=== PATIENT | female | born 2000 | race Caucasian/White ===

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

== ENCOUNTER 2022-06-02 10:01 | Day surgery (SDC) | payer MEDICAID ==
[~2022-06-02 10:01] MED LIST changes: -BUPIVACAINE 0.5% VIAL IJ ONE; -Lactated Ringers 1,000 ML IV ONE; +Marcaine Mpf 0.5% Vial 30 Ml ONE; +XYLOCAINE 1% HCL 20 ML MDV ONE
[2022-06-02] MEDS ORDERED: Lactated Ringers 1,000 ML IV ONE ×2 (10:14→15:32)
[2022-06-02] MEDS ORDERED: CEFAZOLIN 2 GM-D5W BAG** 2 GM/50 ML ML IV ONE (10:14)
[2022-06-02] MEDS ORDERED: CEFAZOLIN 2 GM-D5W BAG** 2 GM/50 ML ML IV SCH (10:30)
[2022-06-02] MEDS ORDERED: Lactated Ringers 1,000 ML IV SCH (10:30)
[2022-06-02] MEDS ORDERED: SUBLIMAZE 100 MCG/2 ML ONE ×3 (11:32→16:02)
[2022-06-02] MEDS ORDERED: Xylocaine-Mpf 2% 5 Ml Vial ONE ×2 (11:32→15:06)
[2022-06-02] MEDS ORDERED: Zofran 4 MG/2 ML VIAL ONE (11:32)
[2022-06-02] MEDS ORDERED: Decadron 4 MG INJ ONE ×3 (11:32→15:06)
[2022-06-02] MEDS ORDERED: DIPRIVAN 200 MG/20 ML IV ONE (11:32)
[2022-06-02] MEDS ORDERED: Quelicin Fliptop 200 MG/10 ML ONE (11:32)
[2022-06-02] MEDS ORDERED: Epinephrine Preservative Free 1 MG/ML ONE ×2 (14:29→14:46)
[2022-06-02] MEDS ORDERED: TORAdol 30 mg Injection ONE (14:32)
[2022-06-02] MEDS ORDERED: DEXMEDETOMIDINE 80 MCG/20ML-NS IV ONE (15:00)
[2022-06-02] MEDS ORDERED: Marcaine 0.5%/Epinephrine 10 ML ONE (15:06)
[2022-06-02] MEDS ORDERED: Compazine 10 MG/2 ML ONE (15:54)
[2022-06-02] MEDS ORDERED: Hydromorphone 1 mg/ml Injection ONE (16:02)
[2022-06-02 17:25] VITALS: BP 101/75; PULSE 97; O2SAT 95
--- NOTE | 2022-06-05 08:44 | OP ---
SURGERY DATE: 06/02/2022 0057 PREOPERATIVE DIAGNOSES: 1) Osteochondral lesion at the medial tibial plafond. 2) Right ankle pain. 3) Fusion of right ankle. 4) Synovitis right ankle. POSTOPERATIVE DIAGNOSES: 1) Osteochondral lesion at the medial tibial plafond. 2) Right ankle pain. 3) Fusion of right ankle. 4) Synovitis right ankle. PROCEDURES: 1) Ankle arthroscopy with synovectomy. 2) Osteochondral drilling. SURGEON: Trae Peters DPM. ENVIRONMENTAL ASSISTANT: None. ANESTHESIA: General plus a postoperative popliteal and saphenous block. HEMOSTASIS: Pressure dressing. ESTIMATED BLOOD LOSS: Less than 2 cc. MATERIALS: None. INJECTABLES: See anesthesia report for details. INDICATION FOR SURGERY: Barb is a very pleasant 21-year-old female who is very well known to my service in the past. We addressed pain to this ankle with an os trigonum to the posterior aspect of the ankle. The patient's pain was for a long time eliminated. However, she has returned with some residual pain. However this is to the front of the ankle at this time. The patient failed conservative therapy and a MRI was obtained back in March demonstrating a small focus osteochondral lesion at the medial aspect of the tibial plafond with subchondral bone marrow edema that measured 7 x 10 mm in the transverse AP plane. Because of this we decided to proceed with nonweightbearing for a period of four weeks for which the patient failed and he was continuously in pain at this time. Options were discussed with the patient and she wished to proceed with addressing this issue with an arthroscopy with attempt at osteochondral drilling in order to see if this eliminates the pain. The patient understands all risks, benefits and complications of the procedure including but not limited to infection, hematoma, seroma, possibility of failure of surgical outcome and possibility of need for surgical intervention at a later date. No guarantees were provided as to the outcome of the surgical intervention. It is with that we decided to proceed. DESCRIPTION OF PROCEDURE AND FINDINGS: The patient is brought into the OR and placed on the OR table in the supine position. At this time, general anesthesia was administered until the patient was sedated. The right lower extremity was prepped and draped in the typical sterile fashion and lowered onto the surgical field. At this time skin marker was utilized and mapping of the joint was performed utilizing the medial malleolus, lateral malleolus and palpable dell with the articulation of the ankle joint when dorsiflexed this was mapped out the appropriate starting site at the anterior medial and anterior lateral portal sites were identified. At this time the anteromedial portal site was accessed utilizing a 50 cc syringe with lactated Ringer's on an 18 gauge needle to insufflate the joint from the anterior-medial portal. 11 blade was utilized to make an incision into the skin. A blunt curved mini-hemostat was utilized to perforate the capsule of the anterior ankle joint. A blunt obturator and a cannula was introduced into this portal and then a camera was introduced. The portal site was flushed and fluid was run through the joint identifying the joint line. Immediately there was some synovitis that was identified where the synovitis was resected utilizing a shaver which was introduced into the anterolateral portal. The same procedure applied however this was performed under the arthroscope light internally to make sure there was no damage to the superficial peroneal nerve. At this time the shaver was introduced and shaving of the synovitis was performed. At this time a majority of the joint was inspected and deemed to be in adequate condition. There were very minor cartilage defects to the anterior tibial plafond. On distraction and probing, there was a small approximately 7 mm cartilaginous lip that was identified. A blunt probe was utilized to lift this and resect it from the site. Following this, osteochondral drilling was performed and the shaver was introduced to punch out the lesion in the tibial plafond. Majority of the remaining diseased cartilage was removed and once again microfracture was performed of the tibial osteochondral defect this was removed, the camera was then removed. The ankle was pumped in order to remove some of the insufflation fluid. Following this, 3-0 Nylon was utilized to suture the surgical portals and a dressing consisting of Betadine, Adaptic, 4x4, Kerlix and a well-padded posterior splint was applied to the right ankle. The patient was then provided a postoperative popliteal block. See anesthesia report for details. She was then reversed from anesthesia and returned to the postoperative anesthesia care unit with vital signs stable and vascular status intact. The patient handled the anesthesia as well as the procedure without significant complication. Postoperative orders as indicated in the patient's discharge chart.
== END 2022-06-02 17:20 | disposition home or self-care (01) ==
LOC: SDC 10:01
PROVIDERS: ATTEND Podiatrist Foot & Ankle Surgery
DX: M93.271 Osteochondritis dissecans, right ankle and joints of right foot (principal); M25.571 Pain in right ankle and joints of right foot; M65.871 Other synovitis and tenosynovitis, right ankle and foot
CPT/HCPCS: 29891; 29895; 64450; 76942; 81025; J0171; J0330; J0690; J1100; J1170; J1885; J2405; J2704; J3010

== ENCOUNTER 2022-09-17 16:49 | Emergency (ER) | payer MEDICAID ==
[2022-09-17 16:58] VITALS: O2SAT 100
--- NOTE | 2022-09-17 17:16 | ERPHSYRPT ---
- History of Present Illness Time Seen by Provider: 09/17/22 17:09 Source: patient Exam Limitations: no limitations Patient Subjective Stated Complaint: pt here for productive green cough, sob at times, headache, she was dx wit flu a 2 weeks ago Triage Nursing Assessment: pt alert, walked in, resp easy, face mask in place, nasal congestion, dry cough, Physician History: pt here for productive green cough, sob at times, headache, she was dx wit flu a 2 weeks ago Timing/Duration: week(s) (two weeks) Cough Quality/Degree: productive cough, sputum Possible Cause: no prior episodes Associated Symptoms: headache, shortness of breath, sore throat Allergies/Adverse Reactions: No Known Drug Allergies Allergy (Verified 09/17/22 16:53) Home Medications: hydrOXYzine HCL [Hydroxyzine HCl] 25 mg PO UD PRN 03/09/20 [History] Levothyroxine Sodium 50 Mcg [Synthroid 50 Mcg] 50 mcg PO DAILY 05/22/22 [History] Sertraline HCl [Zoloft] 100 mg PO DAILY 09/17/22 [History] Hx Tetanus, Diphtheria Vaccination/Date Given: Yes Hx Influenza Vaccination/Date Given: Yes Hx Pneumococcal Vaccination/Date Given: No Immunizations Up to Date: Yes Travel Risk - International Travel Have you traveled outside of the country in past 3 weeks: No - Coronavirus Screening Are you exhibiting any of the following symptoms?: Yes Symptoms: Cough: New Onset, Shortness of Breath - Vaccine Status Have you recieved a Covid-19 vaccination: No - Review of Systems Constitutional: No Fever, No Chills Eyes: No Symptoms Ears, Nose, & Throat: No Symptoms Respiratory: Cough, No Dyspnea Cardiac: No Chest Pain, No Edema, No Syncope Abdominal/Gastrointestinal: No Abdominal Pain, No Nausea, No Vomiting, No Diarrhea Genitourinary Symptoms: No Dysuria Musculoskeletal: No Back Pain, No Neck Pain Skin: No Rash Neurological: No Dizziness, No Focal Weakness, No Sensory Changes Psychological: No Symptoms Endocrine: No Symptoms All Other Systems: Reviewed and Negative - Past Medical History Pertinent Past Medical History: Yes Neurological History: No Pertinent History ENT History: No Pertinent History Cardiac History: No Pertinent History Respiratory History: Other Endocrine Medical History: Hypothyroidism Musculoskeletal History: Other GI Medical History: No Pertinent History History: No Pertinent History Psycho-Social History: Anxiety, Depression Female Reproductive Disorders: No Pertinent History Other Medical History: RIGHT ANKLE SURGERY NOTED ABOVE. HAD COVID 04/2021 - NO RESIDUAL - NOT VACCINATED. neema's thyroiditis - Past Surgical History Past Surgical History: No Neuro Surgical History: No Pertinent History Cardiac: No Pertinent History Respiratory: No Pertinent History Gastrointestinal: No Pertinent History Genitourinary: No Pertinent History Musculoskeletal: Orthopedic Surgery Female Surgical History: No Pertinent History Other Surgical History: rt ankle - Social History Smoking Status: Never smoker Exposure to second hand smoke: No Drug Use: none Patient Lives Alone: No Significant Family History: no pertinent family hx - Female History Hx Last Menstrual Period: 3 weeks ago Hx Now: No - Nursing Vital Signs Nursing Vital Signs: Initial Vital Signs Respiratory Rate 20 09/17/22 16:57 O2 Sat by Pulse Oximetry 100 09/17/22 16:57 Pain Scale Pain Intensity 8 - Physical Exam General Appearance: no apparent distress, alert Eye Exam: PERRL/EOMI, eyes nml inspection Ears, Nose, Throat Exam: normal ENT inspection, TMs normal, pharynx normal, moist mucous membranes Neck Exam: normal inspection, non-tender, supple, full range of motion Respiratory Exam: normal breath sounds, lungs clear, No respiratory distress Cardiovascular Exam: regular rate/rhythm, normal heart sounds Gastrointestinal/Abdomen Exam: soft, No tenderness Back Exam: normal inspection, No CVA tenderness, No vertebral tenderness Extremity Exam: normal inspection, normal range of motion Neurologic Exam: alert, oriented x 3, cooperative, normal mood/affect, sensation nml, No motor deficits Skin Exam: normal color, warm, dry, No rash Lymphatic Exam: No adenopathy SpO2: 100 - Course Nursing assessment & vital signs reviewed: Yes Ordered Tests: Medication Summary Discontinued Medications Generic Name Dose Route Start Last Admin Trade Name Freq PRN Reason Stop Dose Admin Benzonatate 100 mg 09/17/22 17:51 Benzonatate 100 Mg Capsule PO 10/17/22 17:50 TID PRN PRN COUGH Lab/Rad Data: Laboratory Results 09/17/22 Range/Units 17:00 Influenza Type A Ag NEGATIVE (NEGATIVE) Influenza Type B Ag NEGATIVE (NEGATIVE) RSV (PCR) NEGATIVE (Negative) SARS-CoV-2 (PCR) NEGATIVE (NEGATIVE) Group A Strep Antibody NOT DETECTED (NEGATIVE) - Progress Progress: unchanged Air Movement: good Blood Culture(s) Obtained: No Antibiotics given: No Counseled pt/family regarding: lab results, diagnosis, need for follow-up - Departure Departure Disposition: Home Clinical Impression: Cough Qualifiers: Cough type: acute Qualified Code(s): R05.1 - Acute cough Condition: Stable Critical Care Time: No Referrals: HOMER SANDS MD [Primary Care Provider] - Follow up/PCP as directed Instructions: Cough, Adult (DC) Additional Instructions: Discharge/Care Plan AUGUSTO GARCIA was seen on 09/17/22 in the Emergency Room. The patient was counseled regarding Diagnosis,Lab results, Imaging studies, need for follow up and when to return to the Emergency Room. Prescriptions given: Discharge Note I have spoken with the patient and/or caregivers. I have explained the patient's condition, diagnosis and treatment plan based on the information available to me at this time. I have answered the patient's and/or caregiver's questions and addressed any concerns. The patient and/or caregivers have as good understanding of the patient's diagnosis, condition and treatment plan as can be expected at this point. The vital signs have been stable. The patient's condition is stable and appropriate for discharge from the emergency department. The patient will pursue further outpatient evaluation with the primary care physician or other designated or consulting physician as outlined in the discharge instructions. The patient and/or caregivers are agreeable to this plan of care and follow-up instructions have been explained in detail. The patient and/or caregivers have received these instruction. The patient/and or caregivers are aware that any significant change in condition or worsening of symptoms should prompt an immediate return to this or the closest emergency department or call 911. AUGUSTO GARCIA was seen on 09/17/22 n the Emergency Room. At that time you were treated for an emergent condition, during your visit Laboratory, Radiology and/or other procedures may have been ordered. It is very important that you follow-up with your Primary Care Physician HOMER SANDS within the next 24-48 hours to review your Emergency Room visit and the final results of testing that was ordered. Some test results such as Urine Cultures, Blood Cultures, and other cultures if ordered will not be finalized for 24-48 hours. If you do not have a Primary Care Provider please call the medical records department at [phone] to obtain a copy of your results or you may sign into our patient portal to obtain these results by visiting us @ [email or web address] and completing the following steps: 1. Click on the Patient Portal link 2. Click the Patient Self Enrollment Link to complete the enrollment form and entering your 3. Once the enrollment form is completed you will receive an email with a temporary ID and password at the email address you provided. 4. Next choose a user name and password. Your user name must be at least 4 characters long and your password must be at least 4 characters long. 5. Choose a security question from the list and provide your answer to the question. If you already have signed into the Health Portal you may access your Health Care Information 16/04 by the following steps: 1. Login to our website @ [email or web address] 2. Enter your original user name and password. FAQS The [facility] Health Portal is an online tool that contains your Lab Results, Radiology Reports, Visit History, Discharge Instructions and Health Summary Lab and Radiology Results will not be available for 72 hours on the portal. The Portal is a secure site, passwords are encryted and URLs are re-written so they cannot be copied and pasted. You and authorized family members are the only ones who can access your Portal. Also there is a timeout feature that protects your information if you leave the Portal page open. If you have technical difficulty please use the Contact Us link on the page this will allow you to submit any questions you have regarding the Portal or you may contact the Medical Record Department at [phone] ext [phone]. Prescriptions: Benzonatate 200 mg PO TID #15 cap
[2022-09-17 17:30] LABS: Group A Strep NOT DETECTED (NEGATIVE)
[2022-09-17 17:41] LABS: INFLUENZA A NEGATIVE (NEGATIVE); INFLUENZA B NEGATIVE (NEGATIVE); RESPIRATORY SYNCTIAL VIRUS NEGATIVE (Negative); SARS-CoV-2 Xpert Express NEGATIVE (NEGATIVE)
[2022-09-17] MEDS ORDERED: Tessalon Perles 100 MG PO PRN (17:51)
[2022-09-17] MEDS ORDERED: Tessalon Perles 100 MG PO ONE ×3 (17:52→17:54)
[2022-09-17 18:07] VITALS: BP 138/99; PULSE 92
== END 2022-09-17 18:06 | disposition home or self-care (01) ==
LOC: ED 16:49
DX: R05.1 Acute cough (principal); R06.02 Shortness of breath; R51.9 Headache, unspecified; Z79.899 Other long term (current) drug therapy; Z28.310 Unvaccinated for COVID-19
CPT/HCPCS: 0241U; 87651; 99282; A9270-GY

== ENCOUNTER 2023-07-25 15:52 | Emergency (ER) | payer SELFPAY ==
[2023-07-25 16:03] VITALS: TEMP 96.9; O2SAT 99
--- NOTE | 2023-07-25 16:03 | ERPHSYRPT ---
- History of Present Illness Time Seen by Provider: 07/25/23 16:03 Source: patient Exam Limitations: no limitations Physician History: Patient is a 22-year-old 1 para 0 AB 0 at 16 weeks and 1 day gestation who presents with pain in the left calf. This started earlier today she complains of pain and swelling. Timing/Duration: today Severity: moderate Modifying Factors: Improves With: movement Allergies/Adverse Reactions: No Known Drug Allergies Allergy (Verified 09/17/22 16:53) Home Medications: 148/Iron/Folate 6/Dha [Tendera-Ob Softgel] 1 each PO DAILY 07/25/23 [History] Hx Tetanus, Diphtheria Vaccination/Date Given: Yes Hx Influenza Vaccination/Date Given: Yes Hx Pneumococcal Vaccination/Date Given: No Travel Risk - Vaccine Status Have you recieved a Covid-19 vaccination: No - Review of Systems Constitutional: No Fever, No Chills Eyes: No Symptoms Ears, Nose, & Throat: No Symptoms Respiratory: No Cough, No Dyspnea Cardiac: No Chest Pain, No Edema, No Syncope Abdominal/Gastrointestinal: No Abdominal Pain, No Nausea, No Vomiting, No Diarrhea Genitourinary Symptoms: No Dysuria Musculoskeletal: Myalgias, No Back Pain, No Neck Pain Skin: No Rash Neurological: No Dizziness, No Focal Weakness, No Sensory Changes Psychological: No Symptoms Endocrine: No Symptoms All Other Systems: Reviewed and Negative - Past Medical History Pertinent Past Medical History: Yes Neurological History: No Pertinent History ENT History: No Pertinent History Cardiac History: No Pertinent History Respiratory History: Other Endocrine Medical History: Hypothyroidism Musculoskeletal History: Other GI Medical History: No Pertinent History History: No Pertinent History Psycho-Social History: Anxiety, Depression Female Reproductive Disorders: No Pertinent History Other Medical History: RIGHT ANKLE SURGERY NOTED ABOVE. HAD COVID 04/2021 - NO RESIDUAL - NOT VACCINATED. neema's thyroiditis - Past Surgical History Past Surgical History: No Neuro Surgical History: No Pertinent History Cardiac: No Pertinent History Respiratory: No Pertinent History Gastrointestinal: No Pertinent History Genitourinary: No Pertinent History Musculoskeletal: Orthopedic Surgery Female Surgical History: No Pertinent History Other Surgical History: rt ankle - Social History Smoking Status: Never smoker Exposure to second hand smoke: No Drug Use: none Patient Lives Alone: No Significant Family History: no pertinent family hx - Female History Hx Now: Yes - Nursing Vital Signs Nursing Vital Signs: Initial Vital Signs Temperature 96.9 F 07/25/23 15:59 Pulse Rate 110 H 07/25/23 15:59 Respiratory Rate 20 07/25/23 15:59 Blood Pressure 120/82 07/25/23 15:59 O2 Sat by Pulse Oximetry 99 07/25/23 15:59 Pain Scale Pain Intensity 4 - Physical Exam General Appearance: no apparent distress, alert Eye Exam: PERRL/EOMI, eyes nml inspection Ears, Nose, Throat Exam: normal ENT inspection, TMs normal, pharynx normal, moist mucous membranes Neck Exam: normal inspection, non-tender, supple, full range of motion Respiratory Exam: normal breath sounds, lungs clear, No respiratory distress Cardiovascular Exam: regular rate/rhythm, normal heart sounds, normal peripheral pulses Gastrointestinal/Abdomen Exam: soft, normal bowel sounds, other ( heart tones 146), No tenderness, No mass Back Exam: normal inspection, normal range of motion, No CVA tenderness, No vert ebral tenderness Extremity Exam: normal inspection, normal range of motion, pelvis stable, calf tenderness (Left lower extremity), rosana's sign Neurologic Exam: alert, oriented x 3, cooperative, normal mood/affect, nml cerebellar function, nml station & gait, sensation nml, No motor deficits Skin Exam: normal color, warm, dry, No rash Lymphatic Exam: No adenopathy - Radiology Ultrasound Exam Left Venous Lower Extremity Ultrasound: negative Ordered Tests: Active Orders 24 hr Category Date Time Status VENOUS UNILAT/LIMITED EXTREMIT [US] Stat Exams 07/25/23 16:00 Ordered - Progress Progress: improved Discussed with : [facility] Des[facility] Making - Discussion of managment Care discussed with:: specialist (Dr. Ayala informed "No DVT".) Reviewed:: Test results Agreed on:: need for follow-up Will see patient: In office - Diagnostic Testing Radiological Interpretation: Reviewed by me - Risk of complications Minimal Risk: Minimal risk of morbidity - Departure Departure Disposition: Home Clinical Impression: Left leg pain, 16 weeks gestation of Condition: Stable Critical Care Time: No Referrals: HOMER SANDS MD [Primary Care Provider] - Follow up/PCP as directed
--- NOTE | 2023-07-25 16:39 | XRAY ---
Indication: Left leg pain and swelling. Two-dimensional sonogram and color Doppler imaging of the major venous vessels of the left leg performed. Comparison: None No thrombus seen in the examined deep venous vessels of the left leg including greater saphenous vein. Veins demonstrate normal compressibility. Venous waveforms are normal with and without augmentation. Impression: Left leg negative for DVT.
[2023-07-25 16:57] VITALS: BP 114/85; PULSE 97; RESP 18
== END 2023-07-25 16:59 | disposition home or self-care (01) ==
LOC: ED 15:52
DX: M79.662 Pain in left lower leg (principal); Z33.1 Pregnant state, incidental; Z28.310 Unvaccinated for COVID-19; Z86.16 Personal history of COVID-19
CPT/HCPCS: 93971; 99282

== ENCOUNTER 2023-09-20 16:00 | Observation (INO) | payer OTHER ==
[2023-09-20 16:48] VITALS: BP 121/66; PULSE 93; RESP 16; TEMP 98.2; O2SAT 100
== END 2023-09-20 16:53 | disposition home or self-care (01) ==
LOC: OB 16:00
PROVIDERS: ADMIT Obstetrics & Gynecology; ATTEND Obstetrics & Gynecology
DX: Z34.02 Encounter for supervision of normal first pregnancy, second trimester (principal); Z3A.24 24 weeks gestation of pregnancy; Z59.811 Housing instability, housed, with risk of homelessness
CPT/HCPCS: G0378; G0379

== ENCOUNTER 2023-12-02 14:34 | Emergency (ER) | payer OTHER ==
[2023-12-02 15:16] VITALS: TEMP 97.8
[2023-12-02] MEDS ORDERED: Sodium Chloride 0.9% 1000 ML 1,000 ML ONE (15:48)
[2023-12-02] MEDS ORDERED: HYDROCODONE-ACETAMIN 2.5-108/5 ML SOLUTION ONE (15:48)
[2023-12-02 15:54] LABS: Absolute Neutrophil Ct (ANC) 6.22 x10^3/uL (1.4-6.9); BASOPHIL % 0.1 % (0.0-0.4); Basophil (Absolute #) 0.01 x10^3/uL (0-0.4); Eosinophil % 0.5 % (0.00-5.0); Eosinophil (Absolute #) 0.04 x10^3/uL (0-0.5); Hematocrit 33.5 % (35-47); Hemoglobin 10.3 g/dL (12.0-16.0); IMMATURE GRAN # 0.06 x10^3u/L (0.00-0.03); IMMATURE GRAN % 0.7 % (0.00-0.4); Lymphocyte (Absolute #) 1.77 x10^3/uL (1.0-4.6); Lymphocytes % 20.3 % (24.0-44.0); Mean Corpuscular Hemoglobin 25.8 pg (26-32); Mean Corpuscular Hgb Concent. 30.7 g/dL (32-36); Mean Platelet Volume 11.3 fL (7.5-11.0); Monocyte (Absolute #) 0.64 x10^3/uL (0.0-1.3); Monocytes % 7.3 % (0.0-12.0); Neutrophil % 71.1 % (36.0-66.0); Platelet Count 275 x10^3/uL (150-450); Red Blood Count 3.99 x10^6/uL (4.1-5.4); Red Cell Distribution Width 12.6 % (11.5-14.0); White Blood Count 8.7 x10^3/uL (4.0-10.5)
[2023-12-02] MEDS: Sodium Chloride 0.9% 1000 ML 1,000 ML IV STA (15:54)
[2023-12-02] MEDS: HYDROCODONE-ACETAMIN 2.5-108/5 ML SOLUTION PO STA (15:55)
[2023-12-02 16:02] LABS: Appearance Cloudy (Clear); Bacteria Many /HPF (None Seen); Bilirubin Negative (Negative); Blood Negative (Negative); Epithelial Cells Few /HPF (None Seen); Glucose, Urine Negative (Negative); Hyaline Casts NONE SEEN /LPF (0-2); Ketones Negative (Negative); Leukocyte Esterase Trace (Negative); Nitrite Negative (Negative); Ph 6.5 (4.6-8.0); Protein,Urine Dip Trace (Negative); RBC 0-2 /HPF (0-5); Specific Gravity 1.025 (1.005-1.030)
[2023-12-02 16:03] LABS: ADD URINE CULTURE? YES (NO)
[2023-12-02 16:09] LABS: ALBUMIN 3.7 g/dL (3.5-5.0); ANION GAP 11.9 MEQ/L (5-15); BILIRUBIN,TOTAL 0.2 mg/dL (0.2-1.3); Calcium 8.6 mg/dL (8.4-10.2); Creatinine 1 0.44 mg/dL (0.52-1.04); EST GLOMERULAR FILTRATION RATE 141.9 ML/MIN; MAGNESIUM 1.6 mg/dL (1.6-2.3); Potassium 3.7 mmol/L (3.5-5.1); Total Protein 7.3 g/dL (6.3-8.2)
--- NOTE | 2023-12-02 16:28 | XRAY ---
CLINICAL HISTORY: cough TECHNIQUE: X-ray chest AP (portable) view was obtained. COMPARISON: None. FINDINGS: Mild bilateral perihilar prominent bronchovascular markings with prominent hilar shadows are noted. Findings are likely related to reactive airways secondary to bronchitis. A small rounded faint nodule is seen in the right lower lobe. No focal consolidation was seen. No pleural effusion or pneumothorax seen. Normal cardio mediastinal silhouette. Visualized osseous structures appear normal. Soft tissues appear unremarkable IMPRESSION: 1. Mild bilateral perihilar prominent bronchovascular markings with prominent hilar shadows are noted. Findings are likely related to reactive airways secondary to bronchitis. Advise clinical correlation. 2. A small rounded faint nodule is seen in the right lower lobe could be vessel endon projection. Advise clinical correlation and follow-up. Electronically Signed by: Jose Francois MD. (12/02/2023 16:23:45 EDT)
--- NOTE | 2023-12-02 16:51 | ERPHSYRPT ---
- History of Present Illness Time Seen by Provider: 12/02/23 14:57 Source: patient Exam Limitations: no limitations Patient Subjective Stated Complaint: C/O flu symptoms. Patient states she went to the [facility] on Sunday and was diagnosed with influenza B. She is here t linette because she still doesn't feel well. Triage Nursing Assessment: Patient ambulated back to ER without difficulties. She is alert and oriented. No SOB. Non-productive cough present. Nasal congestion. Patient is hoarse. Physician History: 22 years old 1 para 0 at almost 35 weeks gestation presented in the ER with complaint of cough congestion symptoms going on for 1 week. Patient was evaluated at urgent care few days ago and has taken Tamiflu but still having cough productive of second sputum clear color. Still feel congested in the head with no fever or chills. Because of repeated coughing feels short of breath at times. Denies any vaginal bleeding or discharge but does report having some cramping/contractions. No nausea or vomiting reported. Allergies/Adverse Reactions: No Known Drug Allergies Allergy (Verified 12/02/23 15:02) Home Medications: 148/Iron/Folate 6/Dha [Tendera-Ob Softgel] 1 each PO DAILY 07/25/23 [History] Oseltamivir 75 mg [Tamiflu 75MG Capsule] 1 tab PO BID 12/02/23 [History] Hx Tetanus, Diphtheria Vaccination/Date Given: Yes Hx Influenza Vaccination/Date Given: Yes Hx Pneumococcal Vaccination/Date Given: No Immunizations Up to Date: Yes Travel Risk - International Travel Have you traveled outside of the country in past 3 weeks: No - Coronavirus Screening Are you exhibiting any of the following symptoms?: Yes Symptoms: Cough: New Onset, Headaches/Body Aches/Fatigue Close contact with a COVID-19 positive Pt in past 14-21 Days: No - Vaccine Status Have you recieved a Covid-19 vaccination: No - Review of Systems Constitutional: Fatigue, Weakness Eyes: No Symptoms Ears, Nose, & Throat: Nose Congestion, Throat Swelling Respiratory: Cough Cardiac: No Symptoms Abdominal/Gastrointestinal: No Symptoms Genitourinary Symptoms: No Symptoms Musculoskeletal: Myalgias Skin: No Symptoms Neurological: No Symptoms Psychological: No Symptoms Endocrine: No Symptoms Hematologic/Lymphatic: No Symptoms Immunological/Allergic: No Symptoms - Past Medical History Pertinent Past Medical History: Yes Neurological History: No Pertinent History ENT History: No Pertinent History Cardiac History: No Pertinent History Respiratory History: Other Endocrine Medical History: Hypothyroidism Musculoskeletal History: Other GI Medical History: No Pertinent History History: No Pertinent History Psycho-Social History: Anxiety, Depression Female Reproductive Disorders: No Pertinent History Other Medical History: neema - Past Surgical History Past Surgical History: Yes Neuro Surgical History: No Pertinent History Cardiac: No Pertinent History Respiratory: No Pertinent History Gastrointestinal: No Pertinent History Genitourinary: No Pertinent History Musculoskeletal: Orthopedic Surgery Female Surgical History: No Pertinent History Other Surgical History: rt ankle - Social History Smoking Status: Never smoker Exposure to second hand smoke: No Drug Use: none Patient Lives Alone: No Significant Family History: no pertinent family hx - Female History Hx Now: Yes Gestational Age: 35 weeks - Nursing Vital Signs Nursing Vital Signs: Initial Vital Signs Temperature 97.8 F 12/02/23 15:04 Pulse Rate 100 H 12/02/23 15:04 Respiratory Rate 20 12/02/23 15:04 Blood Pressure 130/94 12/02/23 15:04 O2 Sat by Pulse Oximetry 98 12/02/23 15:04 Pain Scale Pain Intensity 0 - Physical Exam General Appearance: no apparent distress, alert Eye Exam: PERRL/EOMI Ears, Nose, Throat Exam: TMs normal, pharyngeal erythema Neck Exam: normal inspection, non-tender, supple, full range of motion Respiratory Exam: normal breath sounds, lungs clear Cardiovascular Exam: regular rate/rhythm, normal heart sounds Gastrointestinal/Abdomen Exam: soft, normal bowel sounds, No tenderness Back Exam: normal inspection Extremity Exam: normal inspection, normal range of motion Neurologic Exam: alert, oriented x 3, cooperative, frog shaker II-XII nml as tested Skin Exam: normal color SpO2 Interpretation: normal SpO2: 98 O2 Delivery: Room Air Ordered Tests: Medication Summary Discontinued Medications Generic Name Dose Route Start Last Admin Trade Name Freq PRN Reason Stop Dose Admin Hydrocodone Bitart/Acetaminophen 10 ml 12/02/23 15:27 12/02/23 15:55 Hydrocodone/Acetaminophen 5 Ml Udcup PO 12/02/23 15:28 10 ml STAT STA Administration Hydrocodone Bitart/Acetaminophen Confirm 12/02/23 15:48 Hydrocodone/Acetaminophen 5 Ml Udcup Administered 12/02/23 15:49 Dose 10 ml .ROUTE .K-MED ONE Sodium Chloride 1,000 mls @ 999 mls/hr 12/02/23 15:26 12/02/23 16:57 Sodium Chloride 0.9% 1000 Ml IV 12/02/23 16:26 Infused .Q1H1M STA Infusion Sodium Chloride Confirm 12/02/23 15:48 Sodium Chloride 0.9% 1000 Ml Administered 12/02/23 15:49 Dose 1,000 mls @ ud .ROUTE .STK-MED ONE Ceftriaxone Sodium/Dextrose 2 g in 50 mls @ 100 mls/hr 12/02/23 16:47 12/02/23 17:31 Rocephin 2 Gm-D5w 50ml Bag IV 12/02/23 17:16 Infused STAT STA Infusion Ceftriaxone Sodium/Dextrose Confirm 12/02/23 16:54 Rocephin 2 Gm-D5w 50ml Bag Administered 12/02/23 16:55 Dose 2 g in 50 mls @ ud IV .STK-MED ONE Lab/Rad Data: Laboratory Result Diagrams 12/02/23 15:45 12/02/23 15:45 Laboratory Results 12/02/23 12/02/23 12/02/23 Range/Units 15:45 15:45 15:35 WBC 8.7 (4.0-10.5) x10^3/uL RBC 3.99 L (4.1-5.4) x10^6/uL Hgb 10.3 L (12.0-16.0) g/dL Hct 33.5 L (35-47) % MCV 84.0 (78-100) fL MCH 25.8 L (26-32) pg MCHC 30.7 L (32-36) g/dL RDW 12.6 (11.5-14.0) % Plt Count 275 (150-450) x10^3/uL MPV 11.3 H (7.5-11.0) fL Gran % 71.1 H (36.0-66.0) % Immature Gran % (Auto) 0.7 H (0.00-0.4) % Nucleat RBC Rel Count 0.0 (0.00-0.1) % Eos # (Auto) 0.04 (0-0.5) x10^3/uL Immature Gran # (Auto) 0.06 H (0.00-0.03) x10^3u/L Absolute Lymphs (auto) 1.77 (1.0-4.6) x10^3/uL Absolute Monos (auto) 0.64 (0.0-1.3) x10^3/uL Absolute Nucleated RBC 0.00 (0.00-0.01) x10^3u/L Lymphocytes % 20.3 L (24.0-44.0) % Monocytes % 7.3 (0.0-12.0) % Eosinophils % 0.5 (0.00-5.0) % Basophils % 0.1 (0.0-0.4) % Absolute Granulocytes 6.22 (1.4-6.9) x10^3/uL Basophils # 0.01 (0-0.4) x10^3/uL Sodium 137 (135-145) mmol/L Potassium 3.7 (3.5-5.1) mmol/L Chloride 108 H (98-107) mmol/L Carbon Dioxide 21 L (22-30) mmol/L Anion Gap 11.9 (5-15) MEQ/L BUN 7 (7-17) mg/dL Creatinine 0.44 L (0.52-1.04) mg/dL Estimated GFR 141.9 ML/MIN Glucose 72 L (74-106) mg/dL Calcium 8.6 (8.4-10.2) mg/dL Magnesium 1.6 (1.6-2.3) mg/dL Total Bilirubin 0.20 (0.2-1.3) mg/dL AST 23 (14-36) U/L ALT 13 (0-35) U/L Alkaline Phosphatase 129 H (38-126) U/L Serum Total Protein 7.3 (6.3-8.2) g/dL Albumin 3.7 (3.5-5.0) g/dL Urine Color Yellow (Yellow) Urine Appearance Cloudy A (Clear) Urine pH 6.5 (4.6-8.0) Ur Specific [place] 1.025 (1.005-1.030) Urine Protein Trace A (Negative) Urine Glucose (UA) Negative (Negative) mg/dL Urine Ketones Negative (Negative) Urine Blood Negative (Negative) Urine Nitrite Negative (Negative) Urine Bilirubin Negative (Negative) Urine Urobilinogen 1.0 A (0.2) mg/dL Ur Leukocyte Esterase Trace A (Negative) U Hyaline Cast (Auto) NONE SEEN (0-2) /LPF Urine Microscopic RBC 0-2 (0-5) /HPF Urine Microscopic WBC 11-20 A (0-5) /HPF Ur Epithelial Cells Few (None Seen) /HPF Urine Bacteria Many A (None Seen) /HPF Urine Culture Reflexed YES (NO) - Progress Progress: improved, re-examined Air Movement: good Progress Note: 12/02/23 17:55 22-year-old 1 para 0 at 35 weeks gestation is evaluated for cough congestion, body aches with positive influenza recently. She is given fluid bolus, workup showed normal white count, fairly unremarkable chemistries. Does have UTI and given a dose of Rocephin. Patient was complaining of some contractions/cramping, we have placed her on toco monitor with no contractions. Initial heart tone was in 160s but after fluids it improved and 130s. Patient is given one-time dose of liquid Mertzon and feeling much better on reevaluation. Chest x-ray did not show any obvious infiltrative process reviewed by me followed by official telemetry radiology read with reactive ai rway disease which is consistent with her recent influenza. She is advised to continue with her Tamiflu and take [id number]-pkiaute cough syrup as recommended and will send a prescription of antibiotics for UTI. Recommended outpatient follow-up. Discussed signs symptoms of worsening needing return to ER which she seems understanding. Stable for discharge. Blood Culture(s) Obtained: Yes Antibiotics given: Yes Counseled pt/family regarding: lab results, diagnosis, need for follow-up, rad results Medical Desision Making - Independent Historian Additional History obtained from: Spouse - Diagnostic Testing Diagnostic test were ordered, analyzed, and reviewed by me: Yes Radiological Interpretation: Interpreted by me, Reviewed by me, Teleradiologist Report - Risk of complications The pt has a mod risk of morbidity or mortality based on: Need for prescription drug management - Departure Departure Disposition: Home Clinical Impression: Viral syndrome, UTI in , Influenza Condition: Stable Critical Care Time: No Referrals: HOMER SANDS MD [Primary Care Provider] - Follow up with PCP 1 day CHARLIE CONTRERAS DO [COURTESY STAFF] - Follow up/PCP as directed (tomorrow for reevaluation) Instructions: Cough, Adult (DC) Additional Instructions: Drink plenty of fluids to keep yourself well-hydrated. Take Tylenol/cough syrup as needed. Follow-up with primary care for reevaluation. Also follow-up with your primary OB for lower abdominal/pelvic cramping/contractions, vaginal bleeding discharge etc. Return to ER for any worsening. Prescriptions: Cefpodoxime Proxetil 200 mg [Vantin 200 mg] 200 mg PO BID 7 Days #14 tablet
[2023-12-02] MEDS ORDERED: ROCEPHIN 2 Gm-D5w 50ML BAG** 2 G/50 ML IVPB IV ONE (16:54)
[2023-12-02] MEDS: ROCEPHIN 2 Gm-D5w 50ML BAG** 2 G/50 ML IVPB IV STA (16:57)
[2023-12-02 17:59] VITALS: BP 128/67; PULSE 84; RESP 16
[2023-12-02 18:02] VITALS: O2SAT 98
== END 2023-12-02 18:09 | disposition home or self-care (01) ==
LOC: ED 14:34
DX: J10.1 Influenza due to other identified influenza virus with other respiratory manifestations (principal); N39.0 Urinary tract infection, site not specified; R05.9 Cough, unspecified; Z33.1 Pregnant state, incidental; Z3A.35 35 weeks gestation of pregnancy
CPT/HCPCS: 36000; 36415; 71045; 80053; 81001; 83735; 85025; 87040; 87086; 96365; 99284; J0696; A9270-GY

== ENCOUNTER 2024-01-14 15:52 | Inpatient (IN) | payer OTHER ==
[2024-01-14] MEDS ORDERED: XYLOCAINE 1% HCL 20 ML MDV IJ PRN (16:14)
[2024-01-14] MEDS ORDERED: Zofran 4 MG/2 ML VIAL IV PRN (16:14)
[2024-01-14 16:49] LABS: Absolute Neutrophil Ct (ANC) 7.97 x10^3/uL (1.4-6.9); BASOPHIL % 0.1 % (0.0-0.4); Basophil (Absolute #) 0.01 x10^3/uL (0-0.4); Eosinophil % 0.5 % (0.00-5.0); Eosinophil (Absolute #) 0.05 x10^3/uL (0-0.5); Hematocrit 30.5 % (35-47); Hemoglobin 9.5 g/dL (12.0-16.0); IMMATURE GRAN # 0.05 x10^3u/L (0.00-0.03); IMMATURE GRAN % 0.5 % (0.00-0.4); Lymphocytes % 14.6 % (24.0-44.0); Mean Corpuscular Hemoglobin 24.3 pg (26-32); Mean Corpuscular Hgb Concent. 31.1 g/dL (32-36); Mean Platelet Volume 11.8 fL (7.5-11.0); Monocyte (Absolute #) 0.71 x10^3/uL (0.0-1.3); Monocytes % 6.9 % (0.0-12.0); NUCLEATED RBC # 0.02 x10^3u/L (0.00-0.01); NUCLEATED RBC % 0.2 % (0.00-0.1); Neutrophil % 77.4 % (36.0-66.0); Platelet Count 304 x10^3/uL (150-450); Red Blood Count 3.91 x10^6/uL (4.1-5.4); Red Cell Distribution Width 14.6 % (11.5-14.0); White Blood Count 10.3 x10^3/uL (4.0-10.5)
[2024-01-14] MEDS: CYTOTEC PO SCH (16:57)
[2024-01-14 17:12] LABS: Amphetamine,Urine NEGATIVE (NEGATIVE); Barbiturate,Urine NEGATIVE (NEGATIVE); Benzodiazepine,Urine NEGATIVE (NEGATIVE); Cocaine,Urine NEGATIVE (NEGATIVE); Methadone,Urine NEGATIVE (NEGATIVE); Opiate,Urine NEGATIVE (NEGATIVE); PCP,Urine NEGATIVE (NEGATIVE); THC,Urine NEGATIVE (NEGATIVE)
[2024-01-14 17:32] LABS: ABO TYPING A; Antibody Screen NEGATIVE (NEGATIVE); RH TYPING POSITIVE
[2024-01-14] MEDS: Lactated Ringers 1,000 ML IV SCH ×2 (18:05→19:19)
[2024-01-14] MEDS: CEFAZOLIN 2 GM-D5W BAG** 2 GM/50 ML ML IV SCH (18:41)
[2024-01-14] MEDS: Pepcid 20 MG VIAL IV SCH (18:42)
[2024-01-14] MEDS: SOD CITRATE-CITRIC ACID SOLN PO SCH (18:42)
[2024-01-14] MEDS: Reglan 10 MG/2 ML IV SCH (18:42)
[2024-01-14 18:49] LABS: INR 0.89 (0.8-3.0); PROTIME 9.8 SECONDS (9.4-12.5); PTT 28.3 SECONDS (25.1-36.5)
[2024-01-14] MEDS ORDERED: Astramorph-Pf 5 MG/10 ML ONE (19:15)
[2024-01-14] MEDS ORDERED: Mylicon 80MG PO PRN (19:30)
[2024-01-14] MEDS ORDERED: Dulcolax 10 MG SUPP PR PRN (19:30)
[2024-01-14] MEDS ORDERED: PHENYLEPHRINE HCL ONE ×2 (19:34→19:38)
[2024-01-14] MEDS ORDERED: Pitocin 10 UNITS/ML ONE (19:46)
[2024-01-14] MEDS ORDERED: Lactated Ringers 1,000 ML IV ONE ×2 (19:48→20:44)
[2024-01-14] MEDS ORDERED: Decadron 4 MG INJ ONE (20:09)
[2024-01-14] MEDS ORDERED: Naropin 0.5% 30 ML VIAL ONE (20:13)
[2024-01-14] MEDS: PITOCIN 30 UNITS/ LR 500 ML 30 UNITS/500 ML PLAST..BAG IV SCH (21:07)
[2024-01-14 22:12] LABS: Appearance Clear (Clear); Bacteria Rare /HPF (None Seen); Bilirubin Negative (Negative); Blood Small (Negative); Glucose, Urine Negative (Negative); Ketones Negative (Negative); Leukocyte Esterase Negative (Negative); Nitrite Negative (Negative); Ph 6.5 (4.6-8.0); Protein,Urine Dip Negative (Negative); Specific Gravity 1.015 (1.005-1.030)
[2024-01-14 22:16] LABS: Epithelial Cells Rare /HPF (None Seen)
[2024-01-14 22:17] LABS: ADD URINE CULTURE? ORDERED SEPARATELY (NO); Hyaline Casts None Seen /LPF (0-2)
[2024-01-14] MEDS: LANSINOH 40 GM TOP PRN (22:52)
[2024-01-15] MEDS: MOTRIN 400 MG PO PRN (00:31)
[2024-01-15 04:55] LABS: Absolute Neutrophil Ct (ANC) 15.29 x10^3/uL (1.4-6.9); BASOPHIL % 0.1 % (0.0-0.4); Basophil (Absolute #) 0.01 x10^3/uL (0-0.4); Eosinophil (Absolute #) 0 x10^3/uL (0-0.5); Hematocrit 27.9 % (35-47); Hemoglobin 8.7 g/dL (12.0-16.0); IMMATURE GRAN # 0.11 x10^3u/L (0.00-0.03); IMMATURE GRAN % 0.6 % (0.00-0.4); Lymphocyte (Absolute #) 1.36 x10^3/uL (1.0-4.6); Lymphocytes % 7.8 % (24.0-44.0); Mean Cell Volume 77.7 fL (78-100); Mean Corpuscular Hemoglobin 24.2 pg (26-32); Mean Corpuscular Hgb Concent. 31.2 g/dL (32-36); Mean Platelet Volume 11.3 fL (7.5-11.0); Monocyte (Absolute #) 0.71 x10^3/uL (0.0-1.3); Monocytes % 4.1 % (0.0-12.0); Neutrophil % 87.4 % (36.0-66.0); Platelet Count 270 x10^3/uL (150-450); Red Blood Count 3.59 x10^6/uL (4.1-5.4); Red Cell Distribution Width 14.3 % (11.5-14.0); White Blood Count 17.5 x10^3/uL (4.0-10.5)
[2024-01-15] MEDS: FERREX 150 PO SCH (09:54)
[2024-01-15] MEDS: Docusate Sodium 100 MG PO SCH (09:54)
[2024-01-15] MEDS: TYLENOL EXTRA STRENGTH 500 MG PO PRN (09:54)
[2024-01-15] MEDS: Dextrose 5%-Lr IV Solution 1000 ML 1,000 ML IV SCH (09:55)
--- NOTE | 2024-01-15 10:01 | OP ---
SURGERY DATE: 01/14/2024 SURGERY TIME: 1923 PREOPERATIVE DIAGNOSES: 1. NONREASSURING HEART TONES. 2. OLIGOHYDRAMNIOS. 3. TERM INTRAUTERINE . POSTOPERATIVE DIAGNOSES: 1. NONREASSURING HEART TONES. 2. OLIGOHYDRAMNIOS. 3. TERM INTRAUTERINE . PROCEDURE: 1. Primary low transverse section. SURGEON: Min Berry M.D. ANESTHESIA: Spinal. QUANTITATIVE BLOOD LOSS: 366 ml. URINE: Clear, straw-colored urine was present in Perez following procedure. SPECIMEN: 1. Placenta was sent for pathology. DESCRIPTION OF PROCEDURE: Patient is a 23 year-old 1, para 0 at 40 6/7 weeks estimated gestational age who was induced today due to US showing an amniotic fluid index of 2 with biophysical profile of 6 out of 8. She was started on oral Cytotec and only received 1 dose. Developed significant broad-based decelerations and a heart tracing with an elevated baseline and it was determined at that point from the very beginning of the process that baby would not tolerate labor and I consented her for primary low transverse section. We discussed risks including infection, bleeding, and damage to surrounding organs including bladder and ureters. Informed consent was obtained. She was taken to the OR. She underwent spinal anesthesia. Was prepped and draped in the usual sterile fashion. Adequate level of anesthesia was assessed and a low transverse skin incision was made by knife and carried down through the subcutaneous fat to the level of the fascia. The fascia was nicked on both sides of the midline and extended horizontal using curved Garza scissors. The superior free edge of the fascia was grasped with Milagro clamps and the underlying rectus muscles were dissected free. The same was repeated inferiorly. Next, the peritoneal cavity was opened bluntly and extended horizontal. Then, a bladder flap was created and reflected over the lower uterine segment. Low transverse uterine incision was made by knife and carried down to the level of the amniotic membranes which were carefully artificially ruptured with scant meconium stained fluid encountered and viable male was delivered from the vertex presentation and passed meconium on the operating field as well. Strong cry was present after oropharynx and nares were bulb suctioned free. I clamped and cut the umbilical cord and he was handed off to the awaiting OB nurse. The uterus was then exteriorized and the placenta was manually extracted. Sponge curetted clean the uterine cavity with a Lap sponge and the uterine incision was then closed with #1 chromic in a running, locked fashion. Good closure and good hemostasis were achieved at this level. The posterior cul-de-sac was wiped free of blood and clot and then the uterus was returned to the peritoneal cavity. Lateral gutters were wiped free of blood and clot with moist Lap sponge and the uterine incision was again inspected and noted to be hemostatic with good closure. Next, the fascia was closed with 0 Vicryl in a running fashion. Good closure and good hemostasis were achieved at that level. Subcutaneous fat was irrigated with warm, sterile saline and then interrupted 2-0 Vicryl sutures were placed in the subcutaneous fat to close the space. Finally, the skin layer was closed with 4-0, undyed Vicryl in running subcuticular fashion. Steri-Strips and an occlusive gel foam dressing were placed over the incision. The patient was stable throughout the entirety of the procedure and was transferred to the recovery room in good condition.
[2024-01-15] MEDS: NORCO 5/325 MG PO PRN (18:31)
--- NOTE | 2024-01-16 08:43 | PCM.DS ---
Discharge Summary Date of Admission: 01/14/24 19:56 Admitting Physician: HOMER SANDS Consults: Consults on Case 01/14/24 19:32 Notify Physician ROUTINE 01/15/24 09:48 Navigation ONCE Primary Care Provider: HOMER SANDS Allergies Allergies No Known Drug Allergies Allergy (Verified 12/02/23 15:02) Hospital Summary - Hospital Course Hospital Course: patient had primary on 01/13 due to nonreassuring heart tones, has done great postop with mild lochia and pain well controlled. luisana po, ambulating and voiding with no difficulty - Vitals & Intake/Output Vital Signs: Vital Signs Temperature 97.9 F 01/16/24 03:54 Pulse Rate 88 01/16/24 03:54 Respiratory Rate 18 01/16/24 03:54 Blood Pressure 116/58 01/16/24 03:54 O2 Sat by Pulse Oximetry 97 01/16/24 03:54 Intake & Output: Intake & Output 01/13/24 01/14/24 01/15/24 01/16/24 11:59 11:59 11:59 11:59 Intake Total 1700 350 Output Total 1600 Balance 100 350 Weight 119.748 kg - Lab Result Diagrams: 01/15/24 04:50 Micro Results-Entire Visit: Microbiology 01/14/24 20:07 Urine Culture - Final Catherized NO GROWTH Discharge Exam General Appearance: no apparent distress Neurologic Exam: alert, oriented x 3 Respiratory Exam: normal breath sounds, lungs clear, No respiratory distress Cardiovascular Exam: regular rate/rhythm, normal heart sounds Gastrointestinal/Abdomen Exam: soft, other (fundus firm, optifoam dressing clean,dry, intact), No tenderness, No mass Extremity Exam: normal inspection, normal range of motion Skin Exam: normal color, warm, dry Final Diagnosis/Problem List - Final Discharge Diagnosis/Problem (1) delivery delivered Current Visit: Yes Status: Acute Code(s): O82 - ENCOUNTER FOR DELIVERY WITHOUT INDICATION - Discharge Disposition: Home, Self-Care Condition: Stable Prescriptions: New Hydrocodone/Acetaminophen [Hydrocodone-Acetamin 5-325 mg] 1 tab PO Q6HPRN PRN #20 tablet MDD 4 PRN Reason: Pain Continue 148/Iron/Folate 6/Dha [Tendera-Ob Softgel] 1 each PO DAILY Follow up with: HOMER SANDS MD [Primary Care Provider] - 5 Days
[2024-01-16] MEDS: Adacel Vial IM ONE (09:19)
[2024-01-16 09:45] VITALS: BP 113/58; PULSE 98; RESP 20; TEMP 98.1; O2SAT 100
== END 2024-01-16 15:06 | disposition home or self-care (01) | DRG 787 ==
LOC: OB 15:52 → OBSVTOIN 19:56
PROVIDERS: ADMIT Family Medicine; ATTEND Family Medicine
PROC: 10D00Z1 Extraction of Products of Conception, Low, Open Approach (ICD-10-PCS; principal; 2024-01-14)
DX: O36.8390 Maternal care for abnormalities of the fetal heart rate or rhythm, unspecified trimester, not applicable or unspecified (principal); O41.03X0 Oligohydramnios, third trimester, not applicable or unspecified; Z3A.40 40 weeks gestation of pregnancy; Z37.0 Single live birth
CPT/HCPCS: 36415; 64488; 76937; 76942; 80307; 81001; 85025; 85610; 85730; 86850; 86900; 86901; 87086; 90715; J0690; J1100; J2274; J2371; J2590; J2795; L0625; A9270-GY